=== PATIENT | male | born 1985 | race Caucasian/White ===

== ENCOUNTER 2017-05-26 15:15 | Emergency (ER) | payer BC ==
[~2017-05-26] VITALS: Ht 172.7 cm; Wt 77.3 kg
[~2017-05-26 15:15] MED LIST: NO HOME MEDICATIONS
[2017-05-26 16:17] LABS: EOS % 0.5 % (0.0-4.0); HEMATOCRIT 43.8 % (42.0-52.0); HEMOGLOBIN 15.7 g/dL (13.5-18.0); LYMPH# 1.1 (1.50-4.00); MEAN CELL VOLUME 88 fl (78-100); MEAN CORPUSCULAR HEMOGLOBIN 32 pg (27-31); MEAN CORPUSCULAR HGB CONC 36 g/dL (33-37); MEAN PLATELET VOLUME 9.2 fl (7.4-10.4); MONO # 0.5 (0.20-0.80); NEU # 5.8 (1.40-6.50); PLATELET COUNT 328 K/mm3 (130-400); RED BLOOD COUNT 4.98 M/mm3 (4.20-5.60); RED CELL DISTRIBUTION WIDTH 11.7 % (11.5-14.5); WHITE BLOOD COUNT 7.5 K/mm3 (4.8-10.8)
[2017-05-26] MEDS ORDERED: FIORICET 325 MG1 TAB PO (16:53)
[2017-05-26 17:06] VITALS: BP 121/78
[2017-05-26 18:55] LABS: ERYTHROCYTE SEDIMENTATION RATE 1 mm/hr (0-15)
== END 2017-05-26 17:07 | disposition home or self-care (01) ==
LOC: ED 15:15
PROVIDERS: Family Medicine
DX: R51 Headache (principal); M54.2 Cervicalgia; R42 Dizziness and giddiness